=== PATIENT | female | born 1995 | race Caucasian/White ===

== ENCOUNTER → 2017-12-31 13:39 | Outpatient (CLI) | payer SELFPAY ==
[2017-12-31 15:57] LABS: Group B Strep DNA By PCR POSITIVE (Negative); Probe Check PASS
== END ==
PROVIDERS: Visit Provider Obstetrics & Gynecology
DX: Z36.85 Encounter for antenatal screening for Streptococcus B (principal)
CPT/HCPCS: 87653

== ENCOUNTER → 2018-01-14 11:14 | Outpatient (CLI) | payer SELFPAY ==
[2018-01-14 12:08] LABS: Glucose 97 mg/dL (74-106)
== END ==
PROVIDERS: Visit Provider Obstetrics & Gynecology
DX: Z34.83 Encounter for supervision of other normal pregnancy, third trimester (principal)
CPT/HCPCS: 36415; 82947

== ENCOUNTER 2018-02-05 01:13 | Inpatient (IN) | payer SELFPAY ==
[2018-02-04 23:20] VITALS: BMI 27.9
[2018-02-05] MEDS: Lactated Ringers 1,000 ML 50 ML IV ×3 (01:45→15:03)
[2018-02-05 02:07] LABS: Hematocrit 37.9 % (37-47); Hemoglobin 13.6 g/dl (12.0-15.0); Mean Corp Hgb Conc 35.9 g/gl (32-36); Mean Corpuscular Hgb 33.7 pg (27.0-32.0); Mean Corpuscular Volume 93.8 fL (81-99); Mean Platelet Vol. 9.1 fl (6.2-12.0); Platelet Count 197 K/mm3 (150-450); RBC Distribution Width CV 13.2 % (11.6-14.6); RBC Distribution Width SD 43.9 fl (35.1-43.9); Red Blood Count 4.04 M/mm3 (4.2-5.4); White Blood Count 17.1 K/mm3 (4.4-11.0)
[2018-02-05 02:10] LABS: Scan Indicated on CBC? Y/N NO
[2018-02-05] MEDS: Acetaminophen 325 MG Tablet PO (10:38)
[2018-02-05 17:38] LABS: ALB/GLOB Ratio 0.7 RATIO (0.9-2.4); AST(SGOT) 25 U/L (15-37); Alanine Aminotransfer ALT/SGPT 22 U/L (13-56); Alkaline Phosphatase 196 U/L (45-117); Anion Gap 15 (5-15); BUN 4 mg/dL (7-18); BUN/Creat Ratio 5.4 RATIO (10-20); Calcium,Total 8.8 mg/dL (8.5-10.1); Chloride 103 mmol/L (98-107); Creatinine, Serum 0.74 mg/dL (0.55-1.02); EST Glomerular Filtration Rate 103 mL/min (>60); Est Glom Filt Rate - Afr Amer 124 mL/min (>60); Estimated Creatinine Clearance 110.69 ml/min; Globulin 4.5 g/dL (2.2-4.2); Glucose 102 mg/dL (74-106); Potassium 3.4 mmol/L (3.5-5.1); Protein, Total 7.5 g/dL (6.4-8.2); Sodium Level 136 mmol/L (136-145)
--- NOTE | 2018-02-05 17:45 | EKG12_ITS ---
Test Reason : TACHYCARDIA Blood Pressure : / mmHG Vent. Rate : 180 BPM Atrial Rate : 182 BPM P-R Int : 000 ms QRS Dur : 076 ms QT Int : 262 ms P-R-T Axes : 000 080 225 degrees QTc Int : 453 ms Supraventricular tachycardia Marked ST abnormality, possible inferolateral subendocardial injury Abnormal ECG No previous ECGs available Confirmed by MARY PEARSON, DONNY ([id number]), editorial clerk HILARY TOLEDO ([id number]) on 02/08/2018 1:40:17 PM Referred By: Confirmed By:DONNY HERNANDEZ MD
--- NOTE | 2018-02-05 18:14 | EKG12_ITS ---
Test Reason : REPEAT EKG Blood Pressure : / mmHG Vent. Rate : 095 BPM Atrial Rate : 095 BPM P-R Int : 152 ms QRS Dur : 082 ms QT Int : 336 ms P-R-T Axes : 043 073 042 degrees QTc Int : 422 ms Sinus rhythm with occasional Premature ventricular complexes Possible Left atrial enlargement Borderline ECG When compared with ECG of 05-FEB-2018 17:15, MANUAL COMPARISON REQUIRED, DATA IS UNCONFIRMED Confirmed by MARY PEARSON, DONNY ([id number]), video editor HILARY TOLEDO ([id number]) on 02/08/2018 1:40:25 PM Referred By: HENOK Confirmed By:DONNY HERNANDEZ MD
[2018-02-05] MEDS: Oxytocin 30 units/NS 500 ml 30 UNITS/500 ML IV.SOLN IV (19:23)
[2018-02-05] MEDS: Oxytocin 30 units/NS 500 ml 30 UNITS/500 ML IV.SOLN 334 UNITS IV (20:30)
--- NOTE | 2018-02-05 20:55 | PCM.OB.VAG ---
Vaginal Delivery Maternal Presentation: Active Labor Amniotic Membrane Rupture Type: Spontaneous Amniotic Fluid Description: Clear Final MOHIT: 01/27/18 Final MOHIT Source: US <20 weeks Gestational age: 41 Weeks and 2 Days Date of Procedure: 02/05/18 Pre-Operative Diagnosis: IUP, Postdatism Post-Operative Diagnosis: IUP, Postdatism, Supraventricular Tachycardia Surgery/ Procedure Performed: Spontaneous Vaginal Delivery Anesthesiologist: Lowell Monte Type of Anesthesia: Epidural Description of Procedure: Spontaneous vaginal delivery of a viable female with Apgars of 8/9 with a normal three-vessel placenta and cord around the neck ?1 tight. First-degree midline episiotomy extended to third degree midline laceration repaired in layers with 3-0 Vicryl suture under epidural anesthesia. Maternal tachycardia to HR of about 220 noted during labor after epidural placement; 12-lead EKG obtained; converted during labor with [address] Niko Newberry, Cardiology. Sponge counts okay. Delivery physician: Jacoby Rowe MD. Presentation: Vertex Placental Delivery Description: Spontaneous Placenta Disposition: [facility] Cord Vessel Description: 3 Vessels Cord Gases drawn per routine: ABG Cord Entanglement: Around neck x 1, tight Drain: Rao to straight drain Estimated Blood Loss: 250 cc Infant A gender: Female (1 minute): 8 (5 minute): 9 Episiotomy Description: Midline, 1st degree Laceration: Midline, Perineal Extension/lac, 2nd degree Medications given after delivery: IV Pitocin Complications: None
[2018-02-05] MEDS: Oxytocin 30 units/NS 500 ml 30 UNITS/500 ML IV.SOLN 167 UNITS IV (21:00)
--- NOTE | 2018-02-05 21:02 | PCM.DCVAG ---
Discharge Diet: No Restrictions Discharge Activity: May Shower, May Take a Tub Bath May resume sexual activity in: 4-6 weeks Additional Activity Instructions:: Nothing in the vagina for 4-6 weeks. You may return to work/school in 6 weeks. Call your doctor if you observe: Fever of 101 or Higher, Inability to urinate, Inability to have a bowel movement, Using more than one pad per hour Additional Instructions: If you experience any of the following, contact your healthcare provider. Bleeding that soaks a pad every hour for 2 hours Unrelieved incision or abdominal pain Swelling, redness, discharge or bleeding from your incision or episiotomy site Your incision begins to separate Problems urinating (including inability to urinate or burning while urinating). Visual changes Severe headache Flu-like symptoms Pain or redness in one of both of your breasts Pain, warmth, tenderness or swelling in your legs, especially the calf area Frequent nausea and vomiting Symptoms of depression or anxiety If you experience any of the following, call 911 or go to the nearest Emergency Room. Chest pain Problems breathing Seizure activity Partial or complete paralysis of a body part, slurred speech, weakness or drooping of the face, or a sudden inability to walk or hold your balance Allergies/Adverse Reactions: Allergies No Known Allergies Allergy (Verified 02/04/18 23:25) Medications to take at Discharge Vits [Prenatabs FA] 1 tablet PO DAILY 02/04/18 Please Follow Up With: Ela Cisneros MD - [phone] When: Call to make an appointment with your doctor in 6 weeks. Primary Care Physician: Sanjuana Schmitt [Primary Care Provider] -
--- NOTE | 2018-02-05 21:03 | DCINST_ITS ---
Discharge Diet: No Restrictions Discharge Activity: May Shower, May Take a Tub Bath May resume sexual activity in: 4-6 weeks Additional Activity Instructions:: Nothing in the vagina for 4-6 weeks. You may return to work/school in 6 weeks. Call your doctor if you observe: Fever of 101 or Higher, Inability to urinate, Inability to have a bowel movement, Using more than one pad per hour Additional Instructions: If you experience any of the following, contact your healthcare provider. * Bleeding that soaks a pad every hour for 2 hours * Unrelieved incision or abdominal pain * Swelling, redness, discharge or bleeding from your incision or episiotomy site * Your incision begins to separate * Problems urinating (including inability to urinate or burning while urinating) . * Visual changes * Severe headache * Flu-like symptoms * Pain or redness in one of both of your breasts * Pain, warmth, tenderness or swelling in your legs, especially the calf area * Frequent nausea and vomiting * Symptoms of depression or anxiety If you experience any of the following, call 911 or go to the nearest Emergency Room. * Chest pain * Problems breathing * Seizure activity * Partial or complete paralysis of a body part, slurred speech, weakness or drooping of the face, or a sudden inability to walk or hold your balance Allergies/Adverse Reactions: Allergies No Known Allergies Allergy (Verified 02/04/18 23:25) Medications to take at Discharge Vits [Prenatabs FA] 1 tablet PO DAILY 02/04/18 Please Follow Up With: Ela Cisneros MD - [phone] When: Call to make an appointment with your doctor in 6 weeks. Primary Care Physician: Sanjuana Schmitt [Primary Care Provider] -
[2018-02-06 00:12] VITALS: BP 119/63; PULSE 87; RESP 15; TEMP 37.1
[2018-02-06 04:00] VITALS: BP 102/57; PULSE 81; RESP 15
[2018-02-06 05:23] LABS: Hematocrit 34.4 % (37-47); Hemoglobin 12.2 g/dl (12.0-15.0); Mean Corp Hgb Conc 35.5 g/gl (32-36); Mean Corpuscular Hgb 33.4 pg (27.0-32.0); Mean Corpuscular Volume 94.2 fL (81-99); Mean Platelet Vol. 9.2 fl (6.2-12.0); Platelet Count 186 K/mm3 (150-450); RBC Distribution Width CV 13.3 % (11.6-14.6); RBC Distribution Width SD 44.5 fl (35.1-43.9); Red Blood Count 3.65 M/mm3 (4.2-5.4); White Blood Count 22.6 K/mm3 (4.4-11.0)
[2018-02-06 05:39] LABS: Scan Indicated on CBC? Y/N NO
[2018-02-06] MEDS: Ibuprofen 600 MG Tablet PO ×2 (06:52→17:51)
--- NOTE | 2018-02-06 07:52 | PCM.PN.OB ---
Subjective: Patient without complaints. Breast-feeding going well. - Physical Exam Vital Signs Temp Pulse Resp BP 98.7 F 81 15 102/57 L 02/06/18 00:12 02/06/18 04:00 02/06/18 04:00 02/06/18 04:00 Oxygen Delivery Method Room Air Weight: 173 lb 1.006 oz Body Mass Index (BMI) 27.9 Intake and Output for Last 24 Hours 02/04/18 02/05/18 02/06/18 23:59 23:59 23:59 Intake Total 1600 / 1600 1300 / 1300 Output Total 1550 / 1550 4050 / 4050 Balance 50 / 50 -2750 / -2750 Laboratory Tests Past 24 Hrs 02/05/18 02/06/18 16:55 04:55 WBC 22.6 H RBC 3.65 L Hgb 12.2 Hct 34.4 L MCV 94.2 MCH 33.4 H MCHC 35.5 RDW 13.3 RDW Differential 44.5 H Plt Count 186 MPV 9.2 Sodium 136 Potassium 3.4 L Chloride 103 Carbon Dioxide 18.0 L Anion Gap 15 BUN 4 L Creatinine 0.74 Estim Creat Clear Calc 110.69 Est GFR (MDRD) Af Amer 124 Est GFR (MDRD) Non-Af 103 BUN/Creatinine Ratio 5.4 L Glucose 102 Calcium 8.8 Total Bilirubin 1.10 H AST 25 ALT 22 Alkaline Phosphatase 196 H Total Protein 7.5 Albumin 3.0 L Globulin 4.5 H Albumin/Globulin Ratio 0.7 L TSH 1.70 Medical Necessity - Tobacco Use Smoking Status: Never smoker Assessment/Plan Doing well. Continuing present care.
[2018-02-06 10:00] VITALS: BP 105/55; PULSE 84; RESP 16; TEMP 36.1
[2018-02-06] MEDS: Senna/Docusate Sodium 1 Tablet PO (11:43)
[2018-02-06] MEDS: Prenatal Vits Tablet 1 TABLET PO (11:43)
[2018-02-06] MEDS: Acetaminophen 500 MG Tablet 1000 MG PO (11:43)
[2018-02-06 14:00] VITALS: BP 99/48; PULSE 79; RESP 16; TEMP 36.4
--- NOTE | 2018-02-06 15:06 | NURSING ---
1400 Assisted with breast feeding right lateral side lying. Baby latches on but sucks only a few times and falls asleep despite attempts to keep her awake.
[2018-02-06 17:57] VITALS: BP 123/56; PULSE 79; RESP 16; TEMP 36.5
[2018-02-06 22:00] VITALS: BP 109/57; PULSE 80; RESP 15; TEMP 37.2
[2018-02-07 06:00] VITALS: BP 112/60; PULSE 78; RESP 15
--- NOTE | 2018-02-07 08:20 | PCM.PN.OB ---
Subjective: No issues overnight. She feels well and lochia is scant. She is . Objective: AVSS - Physical Exam General: Alert, Oriented x3, Cooperative, No apparent distress HEENT: Atraumatic, Normocephalic Lungs: Normal air movement Cardiovascular: Regular rate, Regular Rhythm, Normal S1, Normal S2 Abdomen: Soft, Non Tender, Non-Distended, - - Fundus firm and nontender Extremities: No edema, No Calf Tenderness Neurological: Neuro grossly intact Psych/Mental Status: Normal Affect, Appropriate, Alert and oriented to time, place, person, mood and affect Vital Signs Temp Pulse Resp BP Pulse Ox 97.5 F L 74 16 111/58 L 98 02/07/18 09:00 02/07/18 09:00 02/07/18 09:00 02/07/18 09:00 02/07/18 09:00 Oxygen Delivery Method Room Air Weight: 78.5 kg Body Mass Index (BMI) 27.9 Intake and Output for Last 24 Hours 02/05/18 02/06/18 02/07/18 23:59 23:59 23:59 Intake Total 1600 / 1600 1300 / 1300 Output Total 1550 / 1550 4800 / 4800 Balance 50 / 50 -3500 / -3500 Medical Necessity - Tobacco Use Smoking Status: Never smoker Assessment/Plan 22yo PPD#2 s/p doing well. -Rh pos -d/c home today
[2018-02-07 09:00] VITALS: BP 111/58; PULSE 74; RESP 16; TEMP 36.4; O2SAT 98
[2018-02-07] MEDS: Miconazole-7 Nitrate Cream 1 APPLIC VAGINAL (09:10)
[2018-02-07] MEDS: Dibucaine 30 GM Tube 1 APPLIC TOPICAL (09:11)
[2018-02-07] MEDS: Senna/Docusate Sodium 1 Tablet PO (09:11)
[2018-02-07] MEDS: Ibuprofen 600 MG Tablet PO (09:12)
[2018-02-07] MEDS: Prenatal Vits Tablet 1 TABLET PO (09:12)
[2018-02-07 13:00] VITALS: BP 104/57; PULSE 82; RESP 16; TEMP 36.4; O2SAT 98
--- NOTE | 2018-02-07 15:30 | NURSING ---
Mother and baby id bands verified by mother and mother signed baby discharge sheet
== END 2018-02-07 15:30 | disposition home or self-care (01) | DRG 775 ==
LOC: WPOUT 01:14
PROVIDERS: Admitting Provider Obstetrics & Gynecology; Family Provider Nurse Practitioner; PCP Nurse Practitioner; Visit Provider Obstetrics & Gynecology
DX: O48.0 Post-term pregnancy (principal); I47.1 Supraventricular tachycardia; O70.20 Third degree perineal laceration during delivery, unspecified; O99.89 Other specified diseases and conditions complicating pregnancy, childbirth and the puerperium; O42.02 Full-term premature rupture of membranes, onset of labor within 24 hours of rupture; O69.1XX0 Labor and delivery complicated by cord around neck, with compression, not applicable or unspecified; Z37.0 Single live birth; Z3A.41 41 weeks gestation of pregnancy
CPT/HCPCS: 59025; 59050; 80053; 84443; 85027; 86850; 86900; 93005; 99218; J7120; G0378; J0153

== ENCOUNTER → 2019-04-05 14:05 | Outpatient (CLI) | payer OTHER, SELFPAY ==
[2018-02-04 23:20] VITALS: BMI 27.9
[2019-04-05 15:35] LABS: Color, Urine Yellow (Yellow); Glucose, Dipstick Normal (Normal); Ketone-Dipstick Negative (Negative); Leukocyte Esterase-Dipstick 25 /ul (Negative); Nitrite-Dipstick Negative (Negative); Occult Blood-Urine Negative /ul (Negative); Protein-Dipstick Negative (Negative); Specific Gravity, Urine 1.005 (1.002-1.030); Urine Bilirubin Dipstick Negative (Negative); Urine Clarity Clear (Clear); Urine Urobilinogen Normal (Normal)
[2019-04-05 15:39] LABS: Absolute Lymphocyte Count 1.89 X10^3/ul (0.83-4.51); Absolute Neutrophil Count 6.6 X10^3/uL (2.0-7.7); Basophil# 0.01 X10^3/uL; Basophil% 0.1 % (0-1); Eosinophil# 0.03 X10^3/uL; Eosinophils% 0.3 % (0-5); Hematocrit 39.9 % (37-47); Lymphocyte # 1.89 X10^3/ul (4.0); Lymphocyte % 21.3 % (19-41); Mean Corp Hgb Conc 35.1 g/gl (32-36); Mean Corpuscular Hgb 31.4 pg (27.0-32.0); Mean Corpuscular Volume 89.5 fL (81-99); Mean Platelet Vol. 9.3 fl (6.2-12.0); Monocyte# 0.36 X10^3/uL; Monocyte% 4.1 % (0-10); Neutrophil # 6.56 X10^3/uL (2.7-7.7); Neutrophil % 74.1 % (47-70); POSITIVE COUNT NO; POSITIVE DIFFERENTIAL NO; POSITIVE MORPHOLOGY NO; Platelet Count 234 K/mm3 (150-450); RBC Distribution Width CV 13.4 % (11.6-14.6); RBC Distribution Width SD 43.2 fl (35.1-43.9); Red Blood Count 4.46 M/mm3 (4.2-5.4); White Blood Count 8.9 K/mm3 (4.4-11.0)
[2019-04-05 15:57] LABS: Thyroid Stim Hormone (TSH) 0.77 uIU/mL (0.358-3.74)
[2019-04-05 16:39] LABS: HIV - WCH Non-Reactive (Nonreactive); Rubella IgG < 0.2 IU/mL
[2019-04-05 17:29] LABS: Chlamydia Trachomatis by PCR Negative (Negative); Neisserai gonorrhoeae by PCR Negative (Negative); Probe Check PASS; Sample Adequacy Control PASS; Specimen Processing Control PASS
[2019-04-07 01:45] LABS: Prenatal RPR NONREACTIVE (NONREACTIVE)
[2019-04-07 12:25] LABS: HEPATITIS B SURFACE AG Negative (Negative); Hep C Antibodies 0.1 s/co ratio (0.0-0.9)
== END ==
PROVIDERS: Visit Provider Obstetrics & Gynecology
DX: Z34.82 Encounter for supervision of other normal pregnancy, second trimester (principal); Z12.4 Encounter for screening for malignant neoplasm of cervix; Z11.3 Encounter for screening for infections with a predominantly sexual mode of transmission
CPT/HCPCS: 36415; 81002; 84443; 85025; 86703; 86762; 86803; 87340; 87491; 87591; 88175; G0145

== ENCOUNTER → 2019-07-12 09:10 | Outpatient (CLI) | payer OTHER, SELFPAY ==
[2018-02-04 23:20] VITALS: BMI 27.9
[2019-07-12 10:37] LABS: Hematocrit 37.8 % (37-47); Hemoglobin 12.8 g/dL (12.0-15.0); Mean Corp Hgb Conc 33.9 g/dL (32-36); Mean Corpuscular Hgb 32.7 pg (27.0-32.0); Mean Corpuscular Volume 96.7 fL (81-99); Mean Platelet Vol. 9.1 fl (6.2-12.0); Platelet Count 221 K/mm3 (150-450); RBC Distribution Width CV 13.2 % (11.6-14.6); RBC Distribution Width SD 46.9 fl (35.1-43.9); Red Blood Count 3.91 M/mm3 (4.2-5.4)
[2019-07-12 10:46] LABS: Glucose Challenge Gest 1H 50g 109 mg/dL (70-140)
== END ==
PROVIDERS: Visit Provider Obstetrics & Gynecology
DX: Z34.83 Encounter for supervision of other normal pregnancy, third trimester (principal)
CPT/HCPCS: 36415; 82950; 85027

== ENCOUNTER → 2019-09-13 16:12 | Outpatient (CLI) | payer OTHER, SELFPAY ==
[2018-02-04 23:20] VITALS: BMI 27.9
== END ==
PROVIDERS: Visit Provider Obstetrics & Gynecology
DX: Z36.85 Encounter for antenatal screening for Streptococcus B (principal)
CPT/HCPCS: 87081

== ENCOUNTER 2019-10-11 14:40 | Inpatient (IN) | payer SELFPAY, OTHER ==
[2018-02-04 23:20] VITALS: BMI 27.9
[2019-10-11] MEDS: Lactated Ringers 1,000 ML 50 ML IV (15:30)
[2019-10-11 15:56] LABS: Absolute Lymphocyte Count 1.89 X10^3/uL (0.83-4.51); Absolute Neutrophil Count 11.8 X10^3/uL (2.0-7.7); Basophil# 0.03 X10^3/uL; Basophil% 0.2 % (0-1); Eosinophil# 0.01 X10^3/uL; Eosinophils% 0.1 % (0-5); Hematocrit 39.8 % (37-47); Lymphocyte # 1.89 X10^3/ul (4.0); Lymphocyte % 12.8 % (19-41); Mean Corp Hgb Conc 35.2 g/dL (32-36); Mean Corpuscular Volume 91.1 fL (81-99); Mean Platelet Vol. 9.1 fl (6.2-12.0); Monocyte% 6.8 % (0-10); NRBC Flagged by Analyzer 0 % (0-5); Neutrophil # 11.79 X10^3/uL (2.7-7.7); Neutrophil % 79.8 % (47-70); Platelet Count 209 K/mm3 (150-450); RBC Distribution Width CV 13.3 % (11.6-14.6); RBC Distribution Width SD 44.3 fl (35.1-43.9); Red Blood Count 4.37 M/mm3 (4.2-5.4); White Blood Count 14.8 K/mm3 (4.4-11.0)
[2019-10-11 15:59] VITALS: BMI 26.1
--- NOTE | 2019-10-11 18:05 | HP.PCM_ITS ---
- Problem List (1) 41 weeks gestation of Status: Acute History Date of Admission: 10/11/19 Final MOHIT: 10/02/19 Final MOHIT Source: US <20 weeks Gestational age: 41 Weeks and 2 Days History of this : This is a 23 year-old, G [2], P [1], at 41 2/7 weeks gestational age sent from office in latent labor with contractions and cervix 5cm. Medical History: Medical History (Last Updated 10/11/19 @ 18:09 by Ela Cisneros MD) Supraventricular tachycardia I47.1 Allergies No Known Allergies Allergy (Verified 10/11/19 15:54) Home Medications: Home Medications Vits [Prenatabs FA] 1 tablet PO DAILY 02/04/18 Smoking Status: Never smoker Alcohol: None Number of Fetus(es): 1 NST - FHR Rate Baby A Baseline: 125 Variability:: Moderate Accelerations:: 15 x 15 Decelerations:: None NST Reactive:: Yes FHR Category:: Category I Uterine Activity:: 5/10 min History Past Pregnancies: Past Pregnancies Delivery Date Name GA/ Weeks Route Wt Sex Labor Length Anesthesia Delivery Location FOB 01/2018 41 9lb F 21 Epidural [facility] Labs: Mom's Problem List Problem Status Onset Code 41 weeks gestation of Acute Z3A.41 Mom's Labs & Results 10/11/19 10/11/19 15:30 15:30 WBC 14.8 H RBC 4.37 Hgb 14.0 Hct 39.8 MCV 91.1 MCH 32.0 MCHC 35.2 RDW Std Deviation 44.3 H RDW Coeff of Yolanda 13.3 Plt Count 209 MPV 9.1 Immature Gran % (Auto) 0.300 Neut % (Auto) 79.8 H Lymph % (Auto) 12.8 L [place] % (Auto) 6.8 Eos % (Auto) 0.1 Baso % (Auto) 0.2 Absolute Neuts (auto) 11.8 H Absolute Lymphs (auto) 1.89 Nucleated RBC % 0 Blood Type A POSITIVE Antibody Screen NEGATIVE Course Did the patient receive Yes care? Labs Blood Type: A RH: POSITIVE RPR/VDRL/Syphilis Nonreactive Rubella status Non-immune HbSAg Negative Date Done: 05/29/19 Chlamydia Negative Gonorrhea Negative HIV/AIDS Non-Reactive Group B Strep: Negative Current Obstetrical History Gestational Diabetes No Incompetent Cervix No Infertility No IUGR No Macrosomia No Hypertension/Pre-eclampsia No Placenta Previa/Abruption No PTL/PROM No Uterine anomaly No Oligohydramnios No Polyhydramnios No Multiple gestation No Past Medical History Asthma No Diabetes No Hypertension No Heart disease No Mitral valve prolapse No Neurologic/Seizure disorder/ No Migraines Kidney disease No Liver disease No Varicosities No Clotting disorders/Hx of DVT No Thyroid Dysfunction No Other medical diseases No Psychiatric disorders No Major trauma No Abnormal PAP smear No Sleep apnea No Mammogram in the last 2 years No Social History Marital Status: Alleged father Alberto Hx Smoking No Smoking Status Never smoker Expected Infant Delivery Method: Spontaneous Vaginal Number of Visits: 11 Physical Exam Vitals: avss General: Alert, Oriented x3, Cooperative, No apparent distress HEENT: Atraumatic, Normocephalic Cardiovascular: Regular rate, Regular Rhythm, Normal S1, Normal S2 Lungs: Normal air movement Abdomen: Soft, Non Tender, Non-Distended, Gravid Neurological: Neuro grossly intact TOWEL WEAVER: Normal external genitalia Estimated gestational size: Appropriate for gestational size Presentation: Cephalic Cervix Dilation (cm): 7 Station: -1 Effacement (%): 90 Assessment/Plan All Active Problems 41 weeks gestation of (Acute) This is a 23 year-old, G [2], P [1], at 41 2/7 weeks gestational age in active labor, Cat I FHR -Discussed amniotomy. Pt declines at this time. -Expectant management -Maternal and statuses reassuring
[2019-10-11] MEDS: Oxytocin 30 units/NS 500 ml 30 UNITS/500 ML IV.SOLN 334 UNITS IV (19:31)
[2019-10-11] MEDS: Lactated Ringers 500 ML 999 ML IV (19:54)
--- NOTE | 2019-10-11 20:10 | OP.PCM_ITS ---
Problem List (1) 41 weeks gestation of Status: Acute (2) Shoulder dystocia during labor and delivery Status: Acute Vaginal Delivery Maternal Presentation: Active Labor Amniotic Membrane Rupture Type: Artificial Rupture of Membrane time: 10/11/19 Amniotic Fluid Description: Moderate meconium Final MOHIT: 10/02/19 Final MOHIT Source: US <20 weeks Gestational age: 41 Weeks and 2 Days doctor who attended delivery (if requested by OB): Fredo Fall Date of Procedure: 10/11/19 Pre-Operative Diagnosis: 41 2/7wga, meconium Post-Operative Diagnosis: 41 2/7wga, meconium Surgery/ Procedure Performed: Spontaneous Vaginal Delivery Type of Anesthesia: Local with 1% lidocaine Description of Procedure: Patient FD/-2 on exam. Amniotomy performed with rapid descent to +1 station. Patient pushed to deliver infant head in SHAWN. There was turtling of head and nuchal cord was reduced. I requested additional assistance. Antwan and suprapubic pressure was employed, followed by attempted delivery of the posterior shoulder. The Marquez maneuver was performed was adequate rotation and the anterior shoulder delivered. The posterior shoulder delivered with ease revealing a male . was placed on the maternal abdomen. The cord was doubly clamped and cut and infant passed to the awaiting Wash Test Checker. A second degree perineal laceration was repaired with 3-0 Vicryl Rapide. Sponge counts were correct x 2. Presentation: Vertex Placental Delivery Description: Spontaneous Placenta Disposition: [facility] Cord Vessel Description: 3 Vessels Nuchal Cord Compression: Without compression Cord Gases drawn per routine: ABG, VBG Cord Entanglement: Around neck x 1, loose Estimated Blood Loss: 350 ml Infant A gender: Male (1 minute): 6 (5 minute): 9 - 9 at 10 minutes Episiotomy Description: None Laceration: Midline, 2nd degree Medications given after delivery: IV Pitocin Complications: - - shoulder dystocia
[2019-10-11] MEDS: 0.9% Saline Lock 10 ML Syringe IV ×2 (20:25→21:45)
[2019-10-11] MEDS: Methylergonovine 0.2 MG/ML Ampul IM (20:31)
--- NOTE | 2019-10-11 21:40 | DCINST_ITS ---
Discharge Diet: No Restrictions Discharge Activity: Return to Normal Activity, May Shower, May Take a Tub Bath May resume sexual activity in: 6 weeks Lifting Restrictions: 10 lb Cleanse incision/area with: Soap & Water Additional Instructions: If you experience any of the following, contact your healthcare provider. * Bleeding that soaks a pad every hour for 2 hours * Fever 100.4 or higher * Unrelieved incision or abdominal pain * Swelling, redness, discharge or bleeding from your incision or episiotomy site * Your incision begins to separate * Problems urinating (including inability to urinate or burning while urinating). * Visual changes * Severe headache * Flu-like symptoms * Pain or redness in one of both of your breasts * Pain, warmth, tenderness or swelling in your legs, especially the calf area * Frequent nausea and vomiting * Symptoms of depression or anxiety If you experience any of the following, call 911 or go to the nearest Emergency Room. * Chest pain * Problems breathing * Seizure activity * Partial or complete paralysis of a body part, slurred speech, weakness or drooping of the face, or a sudden inability to walk or hold your balance Allergies/Adverse Reactions: Allergies No Known Allergies Allergy (Verified 10/11/19 15:54) Medications to take at Discharge Vits [Prenatabs FA] 1 tablet PO DAILY 02/04/18 Docusate Sodium [Colace] 100 mg PO BID PRN PRN #60 cap 10/11/19 Ibuprofen 600 mg PO TID PRN #30 tab 10/11/19 The following prescriptions were given: Docusate Sodium [Colace] 100 mg PO BID PRN PRN #60 cap PRN Reason: Constipation Transmission Status: [facility] to [id number] Ibuprofen 600 mg PO TID PRN #30 tab PRN Reason: Pain Or Fever Transmission Status: Pending to [id number] Please Follow Up With: Ela Cisneros MD When: 6 weeks Test Results: Test results from this visit will be discussed in further detail at your follow- up appointment, if applicable.
--- NOTE | 2019-10-11 21:40 | PCM.DCVAG ---
Discharge Diet: No Restrictions Discharge Activity: Return to Normal Activity, May Shower, May Take a Tub Bath May resume sexual activity in: 6 weeks Lifting Restrictions: 10 lb Cleanse incision/area with: Soap & Water Additional Instructions: If you experience any of the following, contact your healthcare provider. Bleeding that soaks a pad every hour for 2 hours Fever 100.4 or higher Unrelieved incision or abdominal pain Swelling, redness, discharge or bleeding from your incision or episiotomy site Your incision begins to separate Problems urinating (including inability to urinate or burning while urinating). Visual changes Severe headache Flu-like symptoms Pain or redness in one of both of your breasts Pain, warmth, tenderness or swelling in your legs, especially the calf area Frequent nausea and vomiting Symptoms of depression or anxiety If you experience any of the following, call 911 or go to the nearest Emergency Room. Chest pain Problems breathing Seizure activity Partial or complete paralysis of a body part, slurred speech, weakness or drooping of the face, or a sudden inability to walk or hold your balance Allergies/Adverse Reactions: Allergies No Known Allergies Allergy (Verified 10/11/19 15:54) Medications to take at Discharge Vits [Prenatabs FA] 1 tablet PO DAILY 02/04/18 Docusate Sodium [Colace] 100 mg PO BID PRN PRN #60 cap 10/11/19 Ibuprofen 600 mg PO TID PRN #30 tab 10/11/19 The following prescriptions were given: Docusate Sodium [Colace] 100 mg PO BID PRN PRN #60 cap PRN Reason: Constipation Transmission Status: [id number] Ibuprofen 600 mg PO TID PRN #30 tab PRN Reason: Pain Or Fever Transmission Status: [id number] Please Follow Up With: Ela Cisneros MD When: 6 weeks Test Results: Test results from this visit will be discussed in further detail at your follow-up appointment, if applicable.
[2019-10-11 23:50] VITALS: BP 126/60; PULSE 82; RESP 16; TEMP 37.2
[2019-10-12] MEDS: Ibuprofen 600 MG Tablet PO ×2 (00:12→16:08)
[2019-10-12] MEDS: Dibucaine 30 GM Tube 1 APPLIC TOPICAL (00:12)
[2019-10-12 04:00] VITALS: BP 111/54; PULSE 67; RESP 17; TEMP 36.7
[2019-10-12] MEDS: Acetaminophen 500 MG Tablet 1000 MG PO (08:00)
--- NOTE | 2019-10-12 08:26 | PCM.PN.OB ---
Patient Problems: Active and Suspected Problems (Last Updated 10/11/19 @ 18:09 by Ela Cisneros MD) 41 weeks gestation of (Acute) Shoulder dystocia during labor and delivery (Acute) Subjective: Reports single episode of heart racing approximately 5 seconds since last seen late yesterday evening. She otherwise feels well. Denies shortness of breath, chest pain. Denies heavy lochia. She is sore. Objective: avss - Physical Exam Vitals/I&O's: Vital Signs Temp Pulse Resp BP 98.0 F 67 17 111/54 L 10/12/19 04:00 10/12/19 04:00 10/12/19 04:00 10/12/19 04:00 Oxygen Delivery Method Room Air Weight: 73.4 kg Body Mass Index (BMI) 26.1 Intake and Output for Last 24 Hours 10/10/19 10/11/19 10/12/19 23:59 23:59 23:59 Intake Total 1115.20 / 1115.20 Balance 1115.20 / 1115.20 General: Alert, Oriented x3, Cooperative, No apparent distress HEENT: Atraumatic, Normocephalic Lungs: Clear to auscultation, Normal air movement Cardiovascular: Regular rate, Regular Rhythm, Normal S1, Normal S2 Abdomen: Soft, Non Tender, Non-Distended, - - fundus firm and nontender, lochia moderage Extremities: No edema Neurological: Neuro grossly intact Psych/Mental Status: Normal Affect, Appropriate, Alert and oriented to time, place, person, mood and affect Laboratory Results 10/11/19 15:30: WBC 14.8 H, RBC 4.37, Hgb 14.0, Hct 39.8, MCV 91.1, MCH 32.0, MCHC 35.2, RDW Std Deviation 44.3 H, RDW Coeff of Yolanda 13.3, Plt Count 209, MPV 9.1, Immature Gran % (Auto) 0.300, Neut % (Auto) 79.8 H, Lymph % (Auto) 12.8 L, [place] % (Auto) 6.8, Eos % (Auto) 0.1, Baso % (Auto) 0.2, Absolute Neuts (auto) 11.8 H, Absolute Lymphs (auto) 1.89, Nucleated RBC % 0 10/11/19 15:30: Blood Type A POSITIVE, Antibody Screen NEGATIVE Current Medications Acetaminophen (Tylenol) 1,000 mg PO Q8H PRN PRN PRN Reason: Pain Score 1-3/10 Last Admin: 10/12/19 08:00 Dose: 1,000 mg Documented by: Bisacodyl (Dulcolax) 10 mg RECTAL UD PRN PRN Reason: If no BM Dibucaine (Dibucaine) 1 applic TOPICAL TID PRN PRN; Protocol PRN Reason: Discomfort Last Admin: 10/12/19 00:12 Dose: 1 applicatio Documented by: Hydrocortisone (Hytone) 1 applic TOPICAL TID PRN PRN; Protocol PRN Reason: Discomfort Ibuprofen (Motrin) 600 mg PO Q6H PRN PRN PRN Reason: Pain Score 1-3/10 Last Admin: 10/12/19 00:12 Dose: 600 mg Documented by: Methylergonovine Maleate (Methergine) 0.2 mg IM X1 PRN PRN Reason: Excess bleeding/uterine atony Last Admin: 10/11/19 20:31 Dose: 0.2 mg Documented by: Ondansetron HCl (Zofran) 4 mg IV Q4H PRN PRN PRN Reason: NAUSEA Senna/Docusate Sodium (Senokot-S, Chloe-Colace) 1 - 2 tablet PO DAILY PRN PRN PRN Reason: Constipation Simethicone (Mylicon) 80 mg PO PCHS PRN PRN Reason: Indigestion/Stomach pain Sodium Chloride () 5 - 15 ml IV UD PRN PRN Reason: SALINE FLUSH Last Admin: 10/11/19 21:45 Dose: 10 ml Documented by: Medical Necessity - Tobacco Use Smoking Status: Never smoker Assessment/Plan All Active Problems (Last Updated 10/11/19 @ 18:09 by Ela Cisneros MD) 41 weeks gestation of (Acute) Shoulder dystocia during labor and delivery (Acute) This is a 23 year-old, G [2], P [2, PPD#1 s/p with shoulder dystocia and maternal SVT. -hx paroxysmal svt - plan for interval cardiology consultation, candidate for beta johnny therapy in / -Rh positive -Rubella nonimmune- MMR -Routine care - -Will continue to observe, plan for d/c tomorrow
[2019-10-12 08:34] VITALS: BP 107/55; PULSE 68; RESP 18; TEMP 37
[2019-10-12 12:00] VITALS: BP 103/52; PULSE 78; RESP 16; TEMP 36.8; O2SAT 97
[2019-10-12 15:57] VITALS: BP 103/52; PULSE 68; RESP 16; TEMP 36.9; O2SAT 98
[2019-10-12 20:25] VITALS: BP 91/48; PULSE 68; RESP 16; TEMP 36.4
[2019-10-13] MEDS: Ibuprofen 600 MG Tablet PO (00:28)
[2019-10-13 02:22] VITALS: BP 107/34; PULSE 61; RESP 14; TEMP 36.4
[2019-10-13 08:00] VITALS: BP 92/49; PULSE 59; RESP 14; TEMP 36.4
--- NOTE | 2019-10-13 08:21 | PCM.PN.OB ---
Patient Problems: Active and Suspected Problems (Last Updated 10/11/19 @ 18:09 by Ela Cisneros MD) 41 weeks gestation of (Acute) Shoulder dystocia during labor and delivery (Acute) Subjective: PPD#2 Vaginal delivery Doing well and wants to go home [place] , within the next hour (ride coming). Denies any further heart racing episodes. Breast feeding Taking Motrin prn for her cramping, mostly with nursing. No concerns voiced otherwise. - Physical Exam Vitals/I&O's: Vital Signs Temp Pulse Resp BP Pulse Ox 97.6 F L 59 L 14 92/49 L 98 10/13/19 08:00 10/13/19 08:00 10/13/19 08:00 10/13/19 08:00 10/12/19 15:57 Oxygen Delivery Method Room Air Weight: 73.4 kg Body Mass Index (BMI) 26.1 Intake and Output for Last 24 Hours 10/11/19 10/12/19 10/13/19 23:59 23:59 23:59 Intake Total 1115.20 / 1115.20 Balance 1115.20 / 1115.20 General: Alert, Oriented x3, Cooperative, No apparent distress HEENT: Atraumatic, EOMI Neck: Supple Abdomen: Soft - Fundus firm at umbilicus Extremities: No clubbing, No cyanosis, No edema Psych/Mental Status: Normal Affect Current Medications Acetaminophen (Tylenol) 1,000 mg PO Q8H PRN PRN PRN Reason: Pain Score 1-3/10 Last Admin: 10/12/19 08:00 Dose: 1,000 mg Documented by: Bisacodyl (Dulcolax) 10 mg RECTAL UD PRN PRN Reason: If no BM Dibucaine (Dibucaine) 1 applic TOPICAL TID PRN PRN; Protocol PRN Reason: Discomfort Last Admin: 10/12/19 00:12 Dose: 1 applicatio Documented by: Hydrocortisone (Hytone) 1 applic TOPICAL TID PRN PRN; Protocol PRN Reason: Discomfort Ibuprofen (Motrin) 600 mg PO Q6H PRN PRN PRN Reason: Pain Score 1-3/10 Last Admin: 10/13/19 00:28 Dose: 600 mg Documented by: Methylergonovine Maleate (Methergine) 0.2 mg IM X1 PRN PRN Reason: Excess bleeding/uterine atony Last Admin: 10/11/19 20:31 Dose: 0.2 mg Documented by: Ondansetron HCl (Zofran) 4 mg IV Q4H PRN PRN PRN Reason: NAUSEA Senna/Docusate Sodium (Senokot-S, Chloe-Colace) 1 - 2 tablet PO DAILY PRN PRN PRN Reason: Constipation Simethicone (Mylicon) 80 mg PO PCHS PRN PRN Reason: Indigestion/Stomach pain Sodium Chloride () 5 - 15 ml IV UD PRN PRN Reason: SALINE FLUSH Last Admin: 10/11/19 21:45 Dose: 10 ml Documented by: Medical Necessity - Tobacco Use Smoking Status: Never smoker Assessment/Plan All Active Problems (Last Updated 10/11/19 @ 18:09 by Ela Cisneros MD) 41 weeks gestation of (Acute) Shoulder dystocia during labor and delivery (Acute) PPD#2 Vaginal delivery Stable pp. no further tachycardia noted. AVSS Physical exam benign Dischg home now per pt request. RTO in 6 wk for pp check with Dr Colleen Nolen.
--- NOTE | 2019-10-13 10:01 | NURSING ---
0955- patient to care via w/c in stable condition. on mothers lap in car seat in stable condition.
== END 2019-10-13 09:55 | disposition home or self-care (01) | DRG 806 ==
PROVIDERS: Admitting Provider Obstetrics & Gynecology; Referring Provider Obstetrics & Gynecology; Visit Provider Obstetrics & Gynecology
DX: O48.0 Post-term pregnancy (principal); O99.411 Diseases of the circulatory system complicating pregnancy, first trimester; Z37.0 Single live birth; I47.1 Supraventricular tachycardia; O77.0 Labor and delivery complicated by meconium in amniotic fluid; O69.81X0 Labor and delivery complicated by cord around neck, without compression, not applicable or unspecified; O70.1 Second degree perineal laceration during delivery; O66.0 Obstructed labor due to shoulder dystocia; Z78.9 Other specified health status; Z3A.41 41 weeks gestation of pregnancy
CPT/HCPCS: 59025; 59050; 85025; 86850; 86900; 86901; 99218; J7120; A4216; G0378

== ENCOUNTER 2021-08-14 17:53 | Emergency (ER) | payer OTHER, SELFPAY ==
[2021-08-14 17:54] VITALS: BP 123/76; PULSE 67; RESP 16; TEMP 36.4; O2SAT 100; BMI 20.9
--- NOTE | 2021-08-14 18:03 | EKG12_ITS ---
Test Reason : CP Blood Pressure : / mmHG Vent. Rate : 068 BPM Atrial Rate : 068 BPM P-R Int : 162 ms QRS Dur : 076 ms QT Int : 394 ms P-R-T Axes : 029 073 066 degrees QTc Int : 418 ms Sinus rhythm with Premature atrial complexes Otherwise normal ECG Confirmed by SHARONDA PEARSON, DANELLE ([id number]), assistant film editor SHIKHA JOYA ([id number]) on 08/18/2021 12:32:33 PM Referred By: KASSIE Confirmed By:CYNTHIA MCDONOUGH MD
[2021-08-14] MEDS: Aspirin 81 MG TAB.CHEW 324 MG PO (18:28)
--- NOTE | 2021-08-14 18:30 | RAD_ITS ---
EXAM: XR CHEST, 2 VIEWS CLINICAL INDICATION: chest pain TECHNIQUE: Frontal and lateral views of the chest. This report was created using [employer] report generation technology. COMPARISON: None. FINDINGS: LUNGS AND PLEURAL SPACES: Unremarkable. No consolidation or edema. No pneumothorax. No effusion. HEART: Unremarkable. Cardiac silhouette not enlarged. MEDIASTINUM: Central airways and mediastinal contour are unremarkable. BONES/JOINTS: Unremarkable. No displaced fracture. No destructive or sclerotic lesions. Visualized joint spaces are unremarkable. SOFT TISSUES: Unremarkable. RAD/Chest PA and Lateral IMPRESSION: No acute cardiopulmonary disease. Electronically Signed: Aliyah Resendiz MD at 19:15 EDT Tel , Service support ,
[2021-08-14 18:42] LABS: Absolute Lymphocyte Count 2.16 X10^3/uL (0.83-4.51); Absolute Neutrophil Count 5.3 X10^3/uL (2.0-7.7); Basophil# 0.01 X10^3/uL; Basophil% 0.1 % (0-1); Eosinophil# 0.02 X10^3/uL; Eosinophils% 0.3 % (0-5); Hemoglobin 14.8 g/dL (12.0-15.0); Lymphocyte # 2.16 X10^3/ul (0.83-4.51); Lymphocyte % 27.4 % (19-41); Mean Corp Hgb Conc 34.4 g/dL (32-36); Mean Corpuscular Hgb 31.1 pg (27.0-32.0); Mean Corpuscular Volume 90.3 fL (81-99); Mean Platelet Vol. 9.1 fl (6.2-12.0); Monocyte# 0.38 X10^3/uL; Monocyte% 4.8 % (0-10); NRBC Flagged by Analyzer 0 % (0-5); Neutrophil # 5.29 X10^3/uL (2.7-7.7); Neutrophil % 67.1 % (47-70); Platelet Count 206 K/mm3 (150-450); RBC Distribution Width CV 12.6 % (11.6-14.6); RBC Distribution Width SD 41.6 fl (35.1-43.9); Red Blood Count 4.76 M/mm3 (4.2-5.4); White Blood Count 7.9 K/mm3 (4.4-11.0)
[2021-08-14 18:50] LABS: Anion Gap 7 (5-15); BUN 9 mg/dL (7-18); BUN/Creat Ratio 10.2 RATIO (10-20); Calcium,Total 9.3 mg/dL (8.5-10.1); Chloride 105 mmol/L (98-107); Creatinine, Serum 0.88 mg/dL (0.55-1.02); EST Glomerular Filtration Rate 82 mL/min (>60); Est Glom Filt Rate - Afr Amer 99 mL/min (>60); Estimated Creatinine Clearance 90.18 ml/min; Glucose 95 mg/dL (74-106); Magnesium 2.4 mg/dL (1.6-2.6); Potassium 3.9 mmol/L (3.5-5.1); Sodium Level 139 mmol/L (136-145); Troponin-I HS 3 pg/mL (3.0-54.0)
[2021-08-14 19:13] VITALS: BP 117/72; PULSE 71; RESP 20; O2SAT 99
[2021-08-14 20:03] VITALS: BP 109/64; PULSE 64; RESP 16; O2SAT 99
--- NOTE | 2021-08-14 20:43 | EX.ED.DYSGE1 ---
HPI History of Present Illness Chief Complaint: Chest Pain Narrative Narrative: Patient is a 25-year-old female who states that over the past few days she has been experiencing intermittent bouts of left-sided chest discomfort. She states that occasionally she will feel her heart racing as well. She denies any history of high blood pressure high cholesterol diabetes or smoking history or family history of cardiac disease at a young age. She also denies any recent travel surgery or history of DVT/PE. She does states she has a remote history of some type of abnormal heart rhythm and because she is felt some palpitations presents for evaluation [facility] Medical History Supraventricular tachycardia Home Medications vit,[id number] [Prenatabs FA] 1 tab PO DAILY 02/04/18 [History Last Taken 10/11/19 12:00] Allergy/AdvReac Type Severity Reaction Status Date / Time No Known Allergies Allergy Verified 08/14/21 17:56 Social History Smoking Status: Never smoker [facility] ED Constitutional Constitutional ED: Denies chills or fever(s) ENT ENT ED: Denies sore throat Cardiovascular Cardiovascular: Reports chest pain and palpitations Respiratory/Chest Respiratory/Chest: Denies cough or dyspnea Gastrointestinal Gastrointestinal: Denies abdominal pain, diarrhea, nausea or vomiting Genitourinary Genitourinary ED: Denies dysuria Musculoskeletal Musculoskeletal: Denies myalgias Integumentary Denies rash Neurologic Neurologic: Denies headache(s) Hematologic/Lymphatic Hematologic/Lymphatic: Denies easy bleeding or easy bruising EXAM Physical Exam Const Vital Signs: 08/14/21 17:54 08/14/21 18:02 08/14/21 19:13 Temperature 97.6 F L Temperature Source Temporal Pulse Rate 67 71 Respiratory Rate 16 20 H Respiratory Effort Normal Non-Labored Blood Pressure 123/76 H 117/72 Blood Pressure Mean 91 87 Pulse Ox 100 99 Oxygen Delivery Method Room Air Room Air 08/14/21 20:03 Temperature Temperature Source Pulse Rate 64 Respiratory Rate 16 Respiratory Effort Blood Pressure 109/64 Blood Pressure Mean 79 Pulse Ox 99 Oxygen Delivery Method Room Air Positive well nourished and well developed General Appearance ED: well developed HEENT Reports moist mucous membranes Eyes PERRL and EOMs intact bilaterally Neck supple Chest Wall palpation of chest normal Resp normal respiratory effort and clear to auscultation bilaterally Cardio regular rate and regular rhythm GI normal to inspection, nondistended, normoactive bowel sounds, non-tender and non-distended Auscultation: normoactive bowel sounds Palpation: soft Extremity normal to inspection Extremity Narrative: No asymmetric edema no pitting edema negative Homans' sign bilaterally Neuro oriented x3 and CN's II-XII intact bilaterally Sensorium / Orientation: alert Motor Exam: strength 5/5 throughout Psych mental status grossly normal Skin no rashes or lesions noted MDM MDM MDM Narrative Medical decision making narrative: Patient presented to the ER with stable vitals. She is low risk for cardiac disease or PE/DVT and she is PERC negative so I do not feel there is a need for a D-dimer. With her report of a remote palpitation history I did elect to place her on the bus driver/monitor. Basic lab work revealed no clinically significant findings and she remained normal sinus rhythm for her entire stay in the ER. Therefore at this time as she is low risk for coronary artery disease and work-up is negative and we have not caught any type of cardiac dysrhythmia she is safe for discharge Lab Data Attestation: I reviewed the patient's lab results. Labs: Laboratory Results - last 24 hr 08/14/21 08/14/21 18:08 18:08 WBC 7.9 RBC 4.76 Hgb 14.8 Hct 43.0 MCV 90.3 MCH 31.1 MCHC 34.4 RDW Std Deviation 41.6 RDW Coeff of Yolanda 12.6 Plt Count 206 MPV 9.1 Immature Gran % (Auto) 0.300 Neut % (Auto) 67.1 Lymph % (Auto) 27.4 Fleming % (Auto) 4.8 Eos % (Auto) 0.3 Baso % (Auto) 0.1 Absolute Neuts (auto) 5.3 Absolute Lymphs (auto) 2.16 Nucleated RBC % 0 Sodium 139 Potassium 3.9 Chloride 105 Carbon Dioxide 27.0 Anion Gap 7 BUN 9 Creatinine 0.88 Estim Creat Clear Calc 90.18 Est GFR (MDRD) Af Amer 99 Est GFR (MDRD) Non-Af 82 BUN/Creatinine Ratio 10.2 Glucose 95 Calcium 9.3 Magnesium 2.4 Troponin I High Sens 3 Radiography Diagnostic Testing: Clinical Impression(s) from Imaging Studies Chest X-Ray 08/14/21 18:30 IMPRESSION: No acute cardiopulmonary disease. Electronically Signed: Aliyah eRsendiz MD at 19:15 EDT Tel , Service support , Discharge Plan Triage Chief Complaint: Chest Pain ED Provider: Jackson Zapata Dx/Rx/DC Orders Clinical Impression: Acute nonspecific chest pain with low risk of coronary artery disease, Heart palpitations Instructions: ED Chest Pain, Uncertain Cause, ED Palpitations Prescriptions: No Action Prenatabs FA 1 TABLET tablet 1 tab PO DAILY RF: 0 Primary Care Provider: Care Physician,No Primary Referrals: Anant Gutierrez MD [STAFF PHYSICIAN] - 3-5 Days if not improving Care Physician,No Primary [Primary Care Provider] - Disposition Disposition: Home, Self Care
[2021-08-14 20:54] VITALS: BP 103/56; PULSE 76; RESP 18; O2SAT 99
== END 2021-08-14 20:54 | disposition home or self-care (01) ==
PROVIDERS: Emergency Provider Emergency Medicine
DX: R07.9 Chest pain, unspecified (principal); R00.2 Palpitations
CPT/HCPCS: 71046; 80048; 83735; 84484; 85025; 93005; 99284; J7030; A4216

== ENCOUNTER → 2022-05-13 | Outpatient (CLI) | payer OTHER, SELFPAY ==
[2022-05-13 14:56] LABS: hCG Titer Quant., Serum 266 mIU/mL (1-3)
== END | disposition home or self-care (01) ==
PROVIDERS: Visit Provider Obstetrics & Gynecology
DX: O20.0 Threatened abortion (principal); Z3A.00 Weeks of gestation of pregnancy not specified
CPT/HCPCS: 36415; 84702

== ENCOUNTER → 2022-05-15 | Outpatient (CLI) | payer SELFPAY ==
[2022-05-15 11:05] LABS: hCG Titer Quant., Serum 151 mIU/mL (1-3)
== END | disposition home or self-care (01) ==
LOC: WOBLAB 09:45
PROVIDERS: Visit Provider Obstetrics & Gynecology
DX: O20.0 Threatened abortion (principal); Z3A.00 Weeks of gestation of pregnancy not specified
CPT/HCPCS: 36415; 84702

== ENCOUNTER → 2022-07-27 | Outpatient (CLI) | payer SELFPAY | END | disposition home or self-care (01) | LOC: LABSPEC 07-28 06:18 | PROVIDERS: Visit Provider Obstetrics & Gynecology | DX: O09.90 Supervision of high risk pregnancy, unspecified, unspecified trimester (principal); Z3A.00 Weeks of gestation of pregnancy not specified | CPT/HCPCS: 87086; 87088 ==

== ENCOUNTER → 2022-09-16 | Outpatient (CLI) | payer SELFPAY ==
[2022-09-16 12:53] LABS: Absolute Lymphocyte Count 1.59 X10^3/uL (0.83-4.51); Absolute Neutrophil Count 9.1 X10^3/uL (2.0-7.7); Basophil# 0.02 X10^3/uL; Basophil% 0.2 % (0-1); Eosinophil# 0.03 X10^3/uL; Eosinophils% 0.3 % (0-5); Hematocrit 36.8 % (37-47); Hemoglobin 12.6 g/dL (12.0-15.0); Lymphocyte # 1.59 X10^3/ul (0.83-4.51); Lymphocyte % 14.2 % (19-41); Mean Corp Hgb Conc 34.2 g/dL (32-36); Mean Corpuscular Hgb 32.1 pg (27.0-32.0); Mean Corpuscular Volume 93.6 fL (81-99); Monocyte# 0.48 X10^3/uL; Monocyte% 4.3 % (0-10); NRBC Flagged by Analyzer 0 % (0-5); Neutrophil # 9.06 X10^3/uL (2.7-7.7); Neutrophil % 80.7 % (47-70); Platelet Count 215 K/mm3 (150-450); RBC Distribution Width CV 13.5 % (11.6-14.6); RBC Distribution Width SD 46.6 fl (35.1-43.9); Red Blood Count 3.93 M/mm3 (4.2-5.4); White Blood Count 11.2 K/mm3 (4.4-11.0)
[2022-09-16 13:15] LABS: Rubella IgG Non-Reactive (Nonreactive); T4 Free Direct 0.84 ng/dL (0.76-1.46); Thyroid Stim Hormone (TSH) 1.14 uIU/mL (0.358-3.74)
== END | disposition home or self-care (01) ==
LOC: PAVLAB 12:25
PROVIDERS: Referring Provider Obstetrics & Gynecology; Visit Provider Obstetrics & Gynecology
DX: O99.280 Endocrine, nutritional and metabolic diseases complicating pregnancy, unspecified trimester (principal); E03.9 Hypothyroidism, unspecified; Z3A.00 Weeks of gestation of pregnancy not specified
CPT/HCPCS: 36415; 84439; 84443; 85025; 86762; 86850; 86900; 86901

== ENCOUNTER → 2022-10-06 | Outpatient (CLI) | payer SELFPAY ==
--- NOTE | 2022-10-06 12:18 | US_ITS ---
STUDY: SECOND AND THIRD TRIMESTER OBSTETRICAL ULTRASOUND REASON FOR EXAM: Female, 26 years old 20 week anatomy scan LMP: 05/20/2022. TECHNIQUE: Transabdominal and Transvaginal TECHNICAL QUALITY: Adequate. PRIOR ULTRASOUND: None. FINDINGS: There is a single intrauterine fetus. The fetus is in an transverse lie with the head on the maternal left side. There is demonstrated cardiac activity with a heart rate of 158 bpm. There is a normal amniotic fluid volume. The largest amniotic fluid pocket measures 3.7 cm x 5.8 cm. The amniotic fluid index (NAINA) is within normal limits. The placenta is fundal and posterior in location. There are Grade 0 placental changes. The cervix measures 4.8 cm in length. The bilateral adnexal regions are normal. BIOMETRY: BPD: 4.47 cm: 19 weeks, 4 days HC: 17.4 cm: 20 weeks, 0 days AC: 14.62 cm: 19 weeks, 6 days FL: 3.12 cm: 19 weeks, 5 days CI: 72% FL/BPD: 70% FL/HC: FL/AC: 21% HC/AC: 1.19 age by current US: 19 weeks, 5 days. MOHIT by current US: 02/25/2023. Estimated weight: 313 grams, +/- 47 grams, 41 %. Age by LMP: 19 weeks, 6 days. MOHIT by LMP: 02/24/2023. ANATOMY: Gender: Male Cranium: Normal lateral ventricles. Normal choroid plexus. Normal cerebellum. Normal cisterna magna. Normal face, nose and lips. Chest: Normal 4-chamber heart. Abdomen/Pelvis: Normal diaphragm. Normal stomach. Normal abdominal wall. Normal cord insertion. Normal 3 vessel cord. Normal kidneys. Normal bladder. Spine: Normal cervical spine. Normal thoracic spine. Normal lumbar spine. Normal sacrum. Extremities: Normal bilateral upper extremities. Normal bilateral lower extremities. US/OB Anatomy Scan IMPRESSION: Single live uterine gestation with a mean gestational age of 19 weeks and 5 days. Electronically Signed: Dany Silva MD at 15:42 EST ,
== END | disposition home or self-care (01) ==
PROVIDERS: Referring Provider Registered Nurse; Visit Provider Registered Nurse
DX: Z34.92 Encounter for supervision of normal pregnancy, unspecified, second trimester (principal)
CPT/HCPCS: 76805; 76830

== ENCOUNTER → 2022-12-01 | Outpatient (CLI) | payer SELFPAY ==
[2022-12-01 13:39] LABS: Absolute Lymphocyte Count 1.62 X10^3/uL (0.83-4.51); Basophil# 0.02 X10^3/uL; Basophil% 0.2 % (0-1); Eosinophil# 0.02 X10^3/uL; Eosinophils% 0.2 % (0-5); Hematocrit 35.9 % (37-47); Hemoglobin 12.4 g/dL (12.0-15.0); Lymphocyte # 1.62 X10^3/ul (0.83-4.51); Lymphocyte % 16.1 % (19-41); Mean Corp Hgb Conc 34.5 g/dL (32-36); Mean Corpuscular Hgb 32.7 pg (27.0-32.0); Mean Corpuscular Volume 94.7 fL (81-99); Mean Platelet Vol. 9.8 fl (6.2-12.0); Monocyte# 0.34 X10^3/uL; Monocyte% 3.4 % (0-10); NRBC Flagged by Analyzer 0 % (0-5); Neutrophil # 8.02 X10^3/uL (2.7-7.7); Neutrophil % 79.8 % (47-70); Platelet Count 204 K/mm3 (150-450); RBC Distribution Width CV 13.5 % (11.6-14.6); RBC Distribution Width SD 45.9 fl (35.1-43.9); Red Blood Count 3.79 M/mm3 (4.2-5.4); White Blood Count 10.1 K/mm3 (4.4-11.0)
[2022-12-01 13:56] LABS: Glucose Challenge Gest 1H 50g 162 mg/dL (70-140)
[2022-12-01 14:28] LABS: HIV - WCH Non-Reactive (Nonreactive); Syphilis Antibodies Non-reactive
== END | disposition home or self-care (01) ==
LOC: PAVLAB 12:22 → LAB 12:33
PROVIDERS: Referring Provider Registered Nurse; Visit Provider Registered Nurse
DX: O09.90 Supervision of high risk pregnancy, unspecified, unspecified trimester (principal); Z3A.00 Weeks of gestation of pregnancy not specified
CPT/HCPCS: 36415; 82950; 85025; 86703; 86780

== ENCOUNTER → 2022-12-11 | Outpatient (CLI) | payer OTHER, SELFPAY ==
[2022-12-11 07:42] LABS: Glucose GTT-Gestation. Fasting 92 mg/dL (<105)
[2022-12-11 08:06] LABS: Thyroid Stim Hormone (TSH) 1.61 uIU/mL (0.358-3.74)
[2022-12-11 08:59] LABS: Glucose GTT-Gestational 1 Hr 176 mg/dL (<190)
[2022-12-11 10:34] LABS: Glucose GTT-Gestational 2 Hr 122 mg/dL (<165)
[2022-12-11 11:34] LABS: Glucose GTT-Gestational 3 Hr 85 L (<145)
== END | disposition home or self-care (01) ==
LOC: LAB 06:54
PROVIDERS: Obstetrics & Gynecology; Referring Provider Nurse Practitioner Women's Health; Visit Provider Nurse Practitioner Women's Health
DX: E03.9 Hypothyroidism, unspecified (principal)
CPT/HCPCS: 36415; 82951; 82952; 84443

== ENCOUNTER → 2023-02-02 | Outpatient (CLI) | payer SELFPAY | END | disposition home or self-care (01) | LOC: LABSPEC 14:52 | PROVIDERS: Referring Provider Registered Nurse; Visit Provider Registered Nurse | DX: Z34.90 Encounter for supervision of normal pregnancy, unspecified, unspecified trimester (principal) | CPT/HCPCS: 87081 ==

== ENCOUNTER → 2023-02-18 | Outpatient (CLI) | payer SELFPAY, OTHER ==
--- NOTE | 2023-02-18 08:59 | US_ITS ---
STUDY: SECOND AND THIRD TRIMESTER OBSTETRICAL ULTRASOUND - LIMITED REASON FOR EXAM: Female, 27 years old routine survey LMP: 05/20/2022 PRIOR ULTRASOUND: 10/06/2022 TECHNIQUE: Transabdominal TECHNICAL QUALITY: Adequate. FINDINGS: There is a single intrauterine fetus. The fetus is in a cephalic presentation. There is demonstrated cardiac activity with a heart rate of 150 bpm. There is a normal amniotic fluid volume. The largest amniotic fluid pocket measures 4.7 cm. The amniotic fluid index (NAINA) is 12.4 cm. The placenta is posterior and fundal, not low-lying There are Grade 3 placental changes. The cervix was not measured BIOMETRY: BPD: 9.6 cm: 39 weeks, 3 days HC: 34.1 cm: 39 weeks, 1 days AC: 34.4 cm: 38 weeks, 2 days FL: 7.4 cm: 38 weeks, 0 days Age by LMP: 39 weeks, 1 days. MOHIT by LMP: 02/24/2023. age by prior US: 39 weeks, 0 days. MOHIT by prior US: 02/25/2023. age by current US: 38 weeks, 5 days. MOHIT by current US: 02/27/2023. Estimated weight: 3534 grams, +/- 530 grams, 56 percentile. US/OB Limited With Biometrics IMPRESSION: Single live intrauterine at 38 weeks, 5 days by current ultrasound with MOHIT of 02/27/2023. Heart rate at 150 bpm. No suspicious sonographic findings, normal growth noted since the previous study Electronically Signed: Roger Jim MD at 13:45 EDT ,
== END | disposition home or self-care (01) ==
PROVIDERS: Referring Provider Registered Nurse; Visit Provider Registered Nurse
DX: O66.0 Obstructed labor due to shoulder dystocia (principal); Z3A.00 Weeks of gestation of pregnancy not specified
CPT/HCPCS: 76816

== ENCOUNTER 2023-02-20 02:10 | Inpatient (IN) | payer SELFPAY, OTHER ==
[2023-02-20] VITALS (43 sets, daily range): BP systolic 101–125; BP diastolic 51–60; PULSE 55–146; RESP 14–18; TEMP 36.2–37.2; O2SAT 94–100; BMI 27.6
[2023-02-20] MEDS: Lactated Ringers 1,000 ML 50 ML IV (02:41)
[2023-02-20 02:42] LABS: Absolute Neutrophil Count 5.9 X10^3/uL (2.0-7.7); Basophil# 0.02 X10^3/uL; Basophil% 0.2 % (0-1); Eosinophil# 0.01 X10^3/uL; Eosinophils% 0.1 % (0-5); Hematocrit 40.7 % (37-47); Hemoglobin 14.2 g/dL (12.0-15.0); Lymphocyte % 26.3 % (19-41); Mean Corp Hgb Conc 34.9 g/dL (32-36); Mean Corpuscular Hgb 32.6 pg (27.0-32.0); Mean Corpuscular Volume 93.3 fL (81-99); Mean Platelet Vol. 10.1 fl (6.2-12.0); Monocyte# 0.47 X10^3/uL; Monocyte% 5.4 % (0-10); NRBC Flagged by Analyzer 0 % (0-5); Neutrophil % 67.5 % (47-70); Platelet Count 180 K/mm3 (150-450); RBC Distribution Width CV 12.8 % (11.6-14.6); RBC Distribution Width SD 43.5 fl (35.1-43.9); Red Blood Count 4.36 M/mm3 (4.2-5.4); White Blood Count 8.7 K/mm3 (4.4-11.0)
[2023-02-20] MEDS: 0.9% Saline Lock 10 ML Syringe IV (02:42)
[2023-02-20] MEDS: Lidocaine 1% (20 ml mdv) 20 ML Vial INFILT (03:50)
[2023-02-20] MEDS: Silver Nitrate (BKC) 1 EACH TOPICAL (03:53)
[2023-02-20] MEDS: Oxytocin 10 UNITS/ML Vial IM (03:53)
[2023-02-20] MEDS: Oxytocin 15 Units/NS 250ml 15 UNITS/250 ML IV.SOLN 83 UNITS IV (03:53)
[2023-02-20 04:10] LABS: Hepatitis B Surface Antigen Non-Reactive (Nonreactive); Hepatitis C Antibody Non-Reactive (Nonreactive); Syphilis Antibodies Non-reactive
--- NOTE | 2023-02-20 04:24 | HP.PCM.OB_ITS ---
HPI - General General Date of Admission: 02/20/23 HPI Narrative IAN ARELLANO, is a 27 y/o @ 39 weeks 4 days who presents to L&D in active labor without rupture of membranes. Her medical history is significant for a shoulder dystocia with her last . Maternal Data Information MOHIT Calculator Estimated Delivery Date Method Current WG Current Estimate 02/23/23 LMP (Certain) 39w 4d PFSH PFS Medical History (Updated 02/20/23 @ 02:23 by Chantell Barboza) Family hx-breast malignancy Shoulder dystocia during labor and delivery, delivered Supraventricular tachycardia Thyroid disorder Home Medications -iron 27 mg-FA 800 mcg-om3 250 mg-dha 200 mg-epa-fish capsule (Ultra Plus DHA) 1 cap PO DAILY 07/24/22 [History Last Taken 02/19/23] vitamin E 30 unit capsule 30 unit PO DAILY 07/24/22 [History Last Taken 02/19/23] Allergy/AdvReac Type Severity Reaction Status Date / Time No Known Allergies Allergy Verified 02/18/23 12:52 Family History Mother , at 56 yo. Breast cancer, Onset Age: 50 Social History adopted: No household members: spouse and children housing: house number of children: 2 current occupational status: unemployed current occupational exposures/hazards: No pets and animals: No history of recent travel: No sexually active: Yes Smoking Status: Never smoker alcohol intake: never substance use type: does not use well-balanced diet: daily or most days caffeine: Yes Type: coffee Number of servings: 1 eating out: rarely or never during the past year weight has: remained stable what type of physical activity do you participate in: walking and bicycling frequency: 3-4 times per week duration: 15-30 minutes/day stacey/sabianism: Amish seatbelt use: sometimes do you feel safe at home: Yes additional social history: Alberto- [employer] History 5 Elective abortions Hx Para 2 Spontaneous abortions 2 Hx # Term Pregnancies Ectopic pregnancies Hx # Pregnancies Multiple births # of living children 2 Past Pregnancies Del. Date Name GA/Weeks Outcome Route Bth Weight Gen Labor Lgth Anesthesia Del Locatn Provider FOB 02/05/18 Marie Howard live - full term 9#0oz Female 21 hrs epidural [facility] Colleen Dominguez 10/11/19 Jackson Serrano live - full term 9#13oz Male 8 hrs none [facility] Colleen Dominguez 04/11/21 10 weeks miscarriage 05/19/22 miscarriage 7 weeks Visit Details Expected Delivery Route/Plan Labor Preferences- CB/BF classes: labor support person: alberto labor intervention preferences: pain management options preferred: unmedicated cut cord/dad catch: [] : yes PP control planned: NFP, menses return 4-6weeks after delivery discussed possible routes of delivery and associated risks: [] special requests: [] Plans Covid status: declines Flu vaccine: declines Tdap vaccine:discussed and declines Rhogam: na LARC form signed: signed Problem list reviewed and updated with the most current plan of care details and appropriate orders placed. Relevant counseling for the gestational age provided. Continue routine care and follow up unless otherwise noted in visit notes/problem list details OB Flowsheet Initial Weight: Not Recorded Date -?-?-?-?-?-?-?-?-?-?-?-?- EGA Weight BP Urine Prot -?-?-?-?-?-?-?-?-?-?-?-?- Glucose FHR FuHt Pres Dilation -?-?-?-?-?-?-?-?-?-?-?-?- Effaced St Visit Note 07/27/22 -?-?-?-?--?-?-?-?-?-?-?-?- 9w 6d 143 lb 4 oz 126/77 -?-?-?-?-?-?-?-?-?-?-?-?- 175 -?-?-?-?-?-?-?-?-?-?-?-?- SM- CRL 2.7cm co ns with LMP 08/19/22 -?-?-?-?-?-?-?-?-?-?-?-?- 13w 1d 145 lb 2 oz 103/65 Nega tive -?-?-?-?-?-?-?-?-?-?-?-?- Negative 160 -?-?-?-?-?-?-?-?-?-?-?-?- LC- feeling bett er, nausea is lifting. no vb,cramping. encouraged to obtain TSH labs for hypothyroidism along with NOB labs. 09/16/22 -?-?-?-?-?-?-?-?-?-?-?-?- 17w 1d 147 lb 96/54 Negative -?-?-?-?-?-?-?-?-?-?-?-?- Negative 164 18 -?-?-?-?-?-?-?-?-?-?-?-?- LC- feeling well . NOB labs obtained today. ultrasound scheduled 09/26. no vb/cramping. LC- feeling well. NOB labs o btained today. ultrasound scheduled 09/26. no vb/cramping. TSH pending 10/06/22 -?-?-?-?-?-?-?-?-?-?-?-?- 20w 0d 149 lb 8 oz 110/62 Nega tive -?-?-?-?-?-?-?-?-?-?-?-?- Negative 166 -?-?-?-?-?-?-?-?-?-?-?-?- MH-NO VB. Feels well. Anatomy US just prior to visit 11/12/22 -?-?-?-?-?-?-?-?-?-?-?-?- 25w 2d 157 lb 114/60 -?-?-?-?-?-?-?-?-?-?-?-?- 160 25 -?-?-?-?-?-?-?-?-?-?-?-?- LC- reviewed nor mal anatomy. doing well. no lof/vb/ctx. good fm. 28 week labs ordered. LC- reviewed normal anatomy. doing well. no lof/vb/ctx. good fm. 28 week labs ordered. neg protein/glucose in urine. 12/01/22 -?-?-?-?-?-?-?-?-?-?-?-?- 28w 0d 162 lb 115/68 Negative -?-?-?-?-?-?-?-?-?-?-?-?- Negative 137 28 -?-?-?-?-?-?-?-?-?-?-?-?- JV- GCT done tod ay with cbc but no tsh. ordered for next visit. no complaints, good FM. 12/15/22 -?-?-?-?-?-?-?-?-?-?-?-?- 30w 0d 160 lb 108/68 Negative -?-?-?-?-?-?-?-?-?-?-?-?- Negative 143 30 -?-?-?-?-?-?-?-?-?-?-?-?- LC-doing well. n o vb/ctx/lof. good fm. contraception reviewed- NFP. larc signed. passed 3 hour glucola 12/31/22 -?-?-?-?-?-?-?-?-?-?-?-?- 32w 2d 161 lb 108/67 -?-?-?-?-?-?-?-?-?-?-?-?- 135 32 -?-?-?-?-?-?-?-?-?-?-?-?- LC- doing well. no concerns. no vb/ctx/lof. good fm. 01/12/23 -?-?-?-?-?-?-?-?-?-?-?-?- 34w 0d 162 lb 104/62 Negative -?-?-?-?-?-?-?-?-?-?-?-?- Negative 140 34 Transverse -?-?-?-?-?-?-?-?-?-?-?-?- LC- doing well,n o ctx/lof/vb. good fm. transverse by naomy today. willl reeval at next visit. 02/02/23 -?-?-?-?-?-?-?-?-?-?-?-?- 37w 0d 163 lb 107/68 Negative -?-?-?-?-?-?-?-?-?-?-?-?- Negative 146 37 Cephalic 1 -?-?-?-?-?-?-?-?-?-?-?-?- 60 -2 LC- no ctx /lof/vb. +VTX. +Bartholin cyst on left side. 02/09/23 -?-?-?-?-?-?-?-?-?-?-?-?- 38w 0d 164 lb 106/69 -?-?-?-?-?-?-?-?-?-?-?-?- 135 38 Cephalic -?-?-?-?-?-?--?-?-?-?-?-?- LC- no ctx/lof/v b. great fm. declines exam today. will obtain growth scan for hx of SD. enc IOL between 39-40weeks. d/w Dr. Meza, agrees with above. 02/18/23 -?-?-?-?-?-?-?-?-?-?-?-?- 39w 2d 166 lb 115/64 Negative -?-?-?-?-?-?-?-?-?-?-?-?- Negative 135 39 Cephalic 3 -?-?-?-?-?-?-?-?-?-?-?-?- 80 -2 kw- +fm. n o lof/vb. contractions over last week. US ~3534grams. discussed IOL ROS Constitutional Constitutional: Denies change in weight, fatigue, fever(s), headache(s), poor appetite or weakness Eyes Eyes: Denies blurry vision, change in vision, seeing flashes or spots in vision ENT HEENT: Denies dizziness, headache(s), loss taste/smell or sore throat Cardiovascular Cardiovascular: Denies chest pain, dizziness, dyspnea, irregular heart rhythm, leg edema, palpitations, rapid heart rate or vomiting Respiratory/Chest Respiratory/Chest: Denies chest tightness, cough, dyspnea or breast pain Gastrointestinal Gastrointestinal: Denies abdominal pain, anorexia, constipation, cramping, diarrhea, hemorrhoids, vomiting or weight changes Genitourinary Genitourinary: Denies dysuria, flank pain, genital lesions, genital pain, urinary frequency or urinary urgency Musculoskeletal Musculoskeletal: Denies back pain, difficulty walking, joint pain, limited range of motion, muscle cramps or numbness Integumentary Integumentary: Denies lesions or unusual bruising Neurologic Neurologic: Denies abnormal movements, abnormal speech, dizziness, numbness, seizure-like activity or syncope Psychiatric Psychiatric: Denies anxiety, behavioral changes, change in appetite, change in libido, cognitive impairment, confusion, depression, difficulty concentrating, hallucinations or suicidal thoughts Endocrine Endocrinology: Denies excessive sweating, polydipsia or polyuria Hematologic/Lymphatic Hematologic/Lymphatic: Denies easy bleeding, easy bruising or lymphadenopathy Allergic/Immunologic Allergic/Immunologic: Denies itchy eyes, lip swelling, seasonal rhinorrhea, rhinitis, throat swelling, tongue swelling, eczemia, wheezing or asthma Vital Signs Vital Signs Vital Signs: 02/20/23 02:09 02/20/23 02:09 02/20/23 02:09 Temperature Temperature Source Pulse Rate 72 Blood Pressure 116/60 BP Systolic 116 BP Diastolic 60 Pulse Ox 98 02/20/23 02:09 02/20/23 02:09 02/20/23 04:08 Temperature 98.2 F Temperature Source Temporal Pulse Rate 66 Blood Pressure BP Systolic BP Diastolic Pulse Ox 02/20/23 04:08 02/20/23 04:05 02/20/23 04:05 Temperature 97.1 F L Temperature Source Temporal Pulse Rate Blood Pressure BP Systolic BP Diastolic Pulse Ox 100 02/20/23 04:09 02/20/23 04:09 02/20/23 04:13 Temperature Temperature Source Pulse Rate 146 H 71 Blood Pressure 102/54 L BP Systolic 102 BP Diastolic 54 Pulse Ox 02/20/23 04:13 02/20/23 04:18 02/20/23 04:18 Temperature Temperature Source Pulse Rate 66 Blood Pressure BP Systolic BP Diastolic Pulse Ox 100 100 02/20/23 04:23 02/20/23 04:23 Temperature Temperature Source Pulse Rate 67 Blood Pressure BP Systolic BP Diastolic Pulse Ox 100 Weight Weight: 166 lb 0.129 oz Body Mass Index (BMI) 27.6 Physical Exam Const alert, oriented x3, no apparent distress and healthy appearing General Appearance: cooperative; Negative for anxious HEENT normocephalic Face and Sinus: normal facial exam Eyes EOMs intact bilaterally and no scleral icterus General Eye: normal appearance of both eyes Neck full ROM and supple Lymph Lymphatic: no lymphadenopathy noted Chest Chest: abnormal inspection of the chest Resp normal respiratory effort Effort and Inspection: able to speak in complete sentences Cardio regular rate GI soft to palpation and non-tender Inspection: gravid Palpation: soft; Negative for tender external exam normal Amniotic Fluid: ROM+plus Back/Spine no CVA tenderness Extremity normal to inspection, full ROM and no clubbing, cyanosis or edema General Extremity: Negative for calf tenderness or edema Skin Lesions: no lesions Rashes: no rashes Psych mental status grossly normal Labs Labs Labs: Blood Type A POSITIVE Antibody Screen NEGATIVE Hct 40.7 % (37-47) Hgb 14.2 g/dL (12.0-15.0) Obstetrics US Syphilis Total Ab Non-reactive Rubella IgG Antibody Non-Reactive (Nonreactive) Hep Bs Antigen Non-Reactive (Nonreactive) HIV 1&2 Antibody Non-Reactive (Nonreactive) Glucose 1 Hr 50 gm 162 mg/dL (70-140) H Group B Strep DNA POSITIVE (Negative) H Rhogam given: No Assessment & Plan (1) Shoulder dystocia during labor and delivery: COMMENT: 9lb 13oz, 9lb was fine. IOL between 39-40 weeks growth scan ordered~3545grams IOL scheduled for 02/22/23 (2) : QUALIFIERS: Weeks of gestation: 39 weeks Qualified Code(s): Z3A.39 - 39 weeks gestation of COMMENT: GBS negative. normal anatomy scan. declined genetic & carrier testing. declines STD testing at NOB visit, agrees to have at delivery. (3) Supervision of high risk , antepartum: COMMENT: PRR/SP , MOHIT 02/23/23, WILLIAM Salazar & Jackson Spouse Alberto (4) Hypothyroid: COMMENT: taking natural supplement, ordered TSH free t4 at NOB/nl normal TSH at 30 weeks (5) Low serum progesterone: COMMENT: per patient. taking natural supplement- stopped at 10 weeks (6) Anxiety: COMMENT: Pt mother in past year, encouraged counseling (7) Tetanus, diphtheria, and acellular pertussis (Tdap) vaccination declined: (8) Abnormal glucose: COMMENT: 3 HR GTT, 2/3 nl GTT (9) Unstable lie of fetus: COMMENT: transverse on exam at 32 weeks spinning babies encouraged potential version PLAN: Plan Patient presents IAL, plan expectant management for , pitocin/AROM PRN if needed. Pain management: none. GBS negative Management of any complications: none I have reviewed the [facility] and made any clinically relevant updates.
--- NOTE | 2023-02-20 04:26 | EX.PCM.OBRPT ---
Assessment & Plan (1) Shoulder dystocia during labor and delivery: COMMENT: 9lb 13oz, 9lb was fine. IOL between 39-40 weeks growth scan ordered~3545grams IOL scheduled for 02/22/23 (2) : QUALIFIERS: Weeks of gestation: 39 weeks Qualified Code(s): Z3A.39 - 39 weeks gestation of COMMENT: GBS negative. normal anatomy scan. declined genetic & carrier testing. declines STD testing at NOB visit, agrees to have at delivery. (3) Supervision of high risk , antepartum: COMMENT: PRR/SP , MOHIT 02/23/23, WILLIAM Salazar & Jackson Spouse Alberto (4) Hypothyroid: COMMENT: taking natural supplement, ordered TSH free t4 at NOB/nl normal TSH at 30 weeks (5) Low serum progesterone: COMMENT: per patient. taking natural supplement- stopped at 10 weeks (6) Anxiety: COMMENT: Pt mother in past year, encouraged counseling (7) Tetanus, diphtheria, and acellular pertussis (Tdap) vaccination declined: (8) Abnormal glucose: COMMENT: 3 HR GTT, 2/3 nl GTT (9) Unstable lie of fetus: COMMENT: transverse on exam at 32 weeks spinning babies encouraged potential version Maternal Data Information MOHIT Calculator Estimated Delivery Date Method Current WG Current Estimate 02/23/23 LMP (Certain) 39w 4d Final MOHIT: 02/23/23 Final MOHIT Source: LMP Vaginal Delivery Maternal Presentation Maternal Presentation: Active Labor Type of Induction: Amniotomy Operative Information Date of Procedure: 02/20/23 Pre-Operative Diagnosis: 27 y/o @ 39 weeks 4 days, active labor Post-Operative Diagnosis: 27 y/o @ 39 weeks 4 days, active labor, mild shoulder dystocia (27 minutes) Surgery / Procedure Performed: Spontaneous Vaginal Delivery Type of Anesthesia: None Estimated Blood Loss: 200cc Time of Delivery: 03:50 Findings Description of Procedure: Patient began pushing and delivered the head in the SHAWN presentation. The head was delivered atraumatically. The anterior should was noted to be stuck and a postive turtle sign was noted. The patient was placed in McRobert's position, Rubmin Maneuver was performed followed by delivery of the posterior shoulder and arm which ultimately resulted in delivery of the infant. Suprapubic was being attempted as we were delivering. The entire process was 27 seconds. The was placed on the maternal abdomen and was found to be vigorous and crying. Delayed cord clamping was employed for approximately 60 seconds. Cord was clamped and cut and gentle traction was applied to the cord and the placenta delivered spontaneously immediately following it was noted to be intact with three-vessel cord. The perineum and vagina were inspected and noted to have a 1st degree laceration.This was repaired using a 3-0 vicryl rapide EBL was 200cc. A left bartholin glan cyst was note. With the patient's verbal consent, the inner labia was injected with 1% lidocaine then a stab incision was made with an 11 blade. Clear fluid returned. A Eloina clamp was used to break up internal loculations. Silver nitrite and a small pice of interrupted suture was used at the base on the incision to create hemostasis. Patient and tolerated delivery well. baby boy Douglas Presentation: Vertex Amniotic Membrane Rupture Type: Spontaneous Amniotic Fluid Description: Clear Placental Delivery Description: Spontaneous Placenta Disposition: [facility] Cord Vessel Description: 3 Vessels Cord Entanglement: None Infant A Gender: Male (1 minute): 8 (5 minute): 9 Delayed Cord Clamping: Yes Post Vaginal Delivery Medications Given After Delivery: IV Pitocin Episiotomy Description: None Complication Complications: None Multi Select Codes Urinary/Genital Urinary/Genital CPT Codes: 98759 Vaginal Delivery global pkg and Other Procedure See Report (I&D bartholin gland cyst )
[2023-02-20] MEDS: Methylergonovine 0.2 MG/ML Ampul IM (04:45)
[2023-02-20] MEDS: Naproxen 500 MG Tablet PO ×2 (06:33→20:47)
[2023-02-21] MEDS: Acetaminophen 500 MG Tablet 1000 MG PO (00:09)
[2023-02-21 00:30] VITALS: BP 107/56; PULSE 63; RESP 16; TEMP 36.5
[2023-02-21 03:33] VITALS: BP 99/52; PULSE 64
[2023-02-21 03:42] VITALS: BP 99/52; PULSE 64; RESP 16; TEMP 36.3
[2023-02-21 08:10] VITALS: BP 98/51; PULSE 67; RESP 14; TEMP 36.4
[2023-02-21 08:15] VITALS: BP 98/51; PULSE 67
--- NOTE | 2023-02-21 09:49 | DCINST_ITS ---
Discharge Instructions Diet Discharge Diet: No restrictions Activity Discharge Activity: Return to Normal Activity, May Not Drive (while taking narcotic pain medications.) and May Shower May resume sexual activity in: 4-6 weeks Dressing / Incision Call your doctor if your incision/area has: Continuous Slow Oozing, Sudden Increased Bleeding, Increased Pain/ Swelling, Increased Redness and Foul Smelling Discharge Follow Up Care Please Follow Up With: Radha Bagley, When: Call [phone] to make an appointment with your doctor in 6 weeks. If you had elevated blood pressure or 4th degree laceration, you will need to be seen in 2 weeks. Test Results: Test results from this visit will be discussed in further detail at your follow- up appointment, if applicable. Discharge Plan Admission Admit Date/Time: 02/20/23 02:10 Primary Reason for Your Visit: vaginal delivery Attending Provider: Radha Bagley Primary Care Provider: Care Physician,Marilu Primary Discharge Orders/Prescriptions Prescriptions: No Action vitamin E 30 unit capsule 30 unit PO DAILY Ultra Plus DHA 27 mg-800 mcg- 250 mg-200 mg capsule 1 cap PO DAILY Referrals / Follow Up: Care Physician,No Primary [Primary Care Provider] - Disposition Disposition (needs filled in before D/C Order can be placed): Home, Self Care
--- NOTE | 2023-02-21 09:50 | PN.OBGYN_ITS ---
Subjective Subjective Patient doing well without complaints. Tolerating PO. Ambulating and voiding without difficulty. Feeding well. Denies chest pain, shortness of breath, calf pain/swelling, fevers, chills, lightheadedness. She would like to be discharged to home today if possible Objective Data Objective Data Vital Signs: Vital Signs Temp Pulse Resp BP Pulse Ox O2 Del Method 97.5 F L 67 14 98/51 L 94 Room Air 02/21/23 08:10 02/21/23 08:15 02/21/23 08:10 02/21/23 08:15 02/20/23 15:14 02/21/23 03:42 Oxygen Delivery Method Room Air Weight: 166 lb 0.129 oz Body Mass Index (BMI) 27.6 Intake & Output: Intake and Output for Last 24 Hours 02/19/23 02/20/23 02/21/23 23:59 23:59 23:59 Intake Total 252.5 / 252.5 Output Total 750 / 750 Balance -497.5 / -497.5 Lab / Micro Data Result Diagrams: 02/20/23 02:25 ROS Constitutional Constitutional: Denies chills, fatigue, fever(s), poor appetite or weakness Eyes Eyes: Denies blurry vision, change in vision, seeing flashes or spots in vision ENT HEENT: Denies dizziness, headache(s), loss taste/smell or sore throat Cardiovascular Cardiovascular: Denies chest pain, dizziness, dyspnea, irregular heart rhythm, palpitations or rapid heart rate Respiratory/Chest Respiratory/Chest: Denies chest tightness, cough, dyspnea or breast pain Gastrointestinal Gastrointestinal: Denies abdominal pain, constipation or vomiting Genitourinary Genitourinary: Denies dysuria or flank pain Musculoskeletal Musculoskeletal: Denies difficulty walking, joint pain, limited range of motion or numbness Neurologic Neurologic: Denies abnormal movements, abnormal speech, dizziness, numbness, seizure-like activity or syncope Psychiatric Psychiatric: Denies anxiety, behavioral changes, change in appetite, confusion, depression or suicidal thoughts Physical Exam Const alert, oriented x3 and no apparent distress General Appearance: cooperative and comfortable Resp normal respiratory effort Cardio regular rate GI normal to inspection, nondistended, normoactive bowel sounds GI Narrative: uterus is firm below umbilicus Palpation: soft Back/Spine no CVA tenderness and thoraco-lumbar ROM normal Extremity normal to inspection, no clubbing, cyanosis or edema, no calf tenderness and no pedal edema Psych mental status grossly normal, thought process normal, cooperative, affect no rmal, speech normal, activity/motor behavior normal, denies homicidal ideation and denies suicidal ideation Assessment & Plan (1) Status post vaginal delivery: COMMENT: tl ENAMORADO 02/20/23 mild shoulder dystocia (26 seconds) PLAN: s/p PPD # 1 1. routine post delivery care 2. breast feeding- support given 3. rh positive 4. rubella immune 5. dc to home today after peds clears them
[2023-02-21 14:13] VITALS: BP 107/58; PULSE 75; RESP 14; TEMP 36.7
== END 2023-02-21 14:35 | disposition home or self-care (01) | DRG 807 ==
LOC: WPOUT 02:15 → WP 02:15
PROVIDERS: Admitting Provider Obstetrics & Gynecology; Referring Provider Obstetrics & Gynecology; Visit Provider Obstetrics & Gynecology
DX: O66.0 Obstructed labor due to shoulder dystocia (principal); Z37.0 Single live birth; O26.23 Pregnancy care for patient with recurrent pregnancy loss, third trimester; E03.9 Hypothyroidism, unspecified; F41.9 Anxiety disorder, unspecified; O99.814 Abnormal glucose complicating childbirth; O99.344 Other mental disorders complicating childbirth; Z3A.39 39 weeks gestation of pregnancy; O99.892 Other specified diseases and conditions complicating childbirth; N75.0 Cyst of Bartholin's gland; O99.284 Endocrine, nutritional and metabolic diseases complicating childbirth; O70.0 First degree perineal laceration during delivery; O26.893 Other specified pregnancy related conditions, third trimester; O32.0XX0 Maternal care for unstable lie, not applicable or unspecified; Z63.4 Disappearance and death of family member; Z28.310 Unvaccinated for COVID-19; Z28.21 Immunization not carried out because of patient refusal; Z87.59 Personal history of other complications of pregnancy, childbirth and the puerperium
CPT/HCPCS: 59025; 59050; 85025; 86780; 86803; 86850; 86900; 86901; 87340; 99221; J7120; A4216; G0378

== ENCOUNTER → 2023-04-01 | Outpatient (CLI) | payer OTHER, SELFPAY ==
[2023-04-10 17:13] LABS: HPV Reflexed? NOT INDICATED
== END | disposition home or self-care (01) ==
LOC: LABSPEC 16:32
PROVIDERS: Referring Provider Registered Nurse; Visit Provider Registered Nurse
DX: Z39.2 Encounter for routine postpartum follow-up (principal)
CPT/HCPCS: 88175; G0145

== ENCOUNTER → 2024-09-06 | Outpatient (CLI) | payer SELFPAY ==
--- NOTE | 2024-09-06 14:18 | US_ITS ---
INDICATION: pelvic pain EXAMINATION: Ultrasound US Pelvis Non OB Complete With Transvaginal Imaging TECHNIQUE: Transabdominal and transvaginal pelvic ultrasound was performed. Grayscale, spectral waveform, and color flow Doppler evaluation of the adnexa. COMPARISON: No relevant prior comparison study available FINDINGS: UTERUS: The uterus measures 9.3 x 4.5 x 6.0 cm. There is no uterine mass. The endometrial stripe measures 7.3 mm in AP diameter which is within normal limits. RIGHT OVARY: 2.4 x 2.8 x 3.0 cm. There are peripherally located subcentimeter cysts. Non-enlarged, normal echogenicity. There is normal arterial inflow and venous outflow present in the right ovary. LEFT OVARY: 3.9 x 1.8 x 2.7 cm. There are peripherally located subcentimeter cysts. Non-enlarged, normal echogenicity. There is normal arterial inflow and venous outflow present in the left ovary. FREE FLUID: There is trace free fluid which is likely physiologic. US/Pelvic w/ Transvaginal IMPRESSION: Peripherally located subcentimeter ovarian cysts, in the appropriate clinical setting may be secondary to polycystic ovarian syndrome. Electronically Signed: Mikki Stanton MD at 9:13 EDT ,
== END | disposition home or self-care (01) ==
PROVIDERS: Referring Provider Registered Nurse; Visit Provider Registered Nurse
DX: R10.2 Pelvic and perineal pain (principal)
CPT/HCPCS: 76830; 76856